=== PATIENT | female | born 1995 | race Caucasian/White ===

== ENCOUNTER 2021-05-19 07:55 | Outpatient (CLI) | payer OTHER | END 2021-05-19 08:27 | disposition home or self-care (01) | LOC: LAB 07:55 | PROVIDERS: ATTEND Preventive Medicine Occupational Medicine | DX: U07.1 COVID-19 (principal) ==

== ENCOUNTER 2021-07-10 14:19 | Emergency (ER) | payer OTHER ==
[~2021-07-10] VITALS: Ht 170.2 cm; Wt 79.4 kg
== END 2021-07-10 20:49 | disposition home or self-care (01) ==
LOC: ER 14:19
DX: S62.509A Fracture of unspecified phalanx of unspecified thumb, initial encounter for closed fracture (principal); Y09 Assault by unspecified means

== ENCOUNTER 2021-07-18 06:32 | Outpatient (CLI) | payer OTHER | END 2021-07-18 06:46 | disposition home or self-care (01) | LOC: LAB 06:32 | PROVIDERS: ATTEND Internal Medicine Endocrinology, Diabetes & Metabolism | DX: E10.65 Type 1 diabetes mellitus with hyperglycemia (principal); E04.0 Nontoxic diffuse goiter; E06.3 Autoimmune thyroiditis; R80.9 Proteinuria, unspecified ==

== ENCOUNTER 2021-07-18 16:02 | Outpatient (CLI) | payer OTHER | END 2021-07-18 16:12 | disposition home or self-care (01) | LOC: RAD 16:02 | PROVIDERS: ATTEND Orthopaedic Surgery | DX: S62.521A Displaced fracture of distal phalanx of right thumb, initial encounter for closed fracture (principal) ==

== ENCOUNTER 2021-07-22 08:29 | Outpatient (CLI) | payer OTHER | END 2021-07-22 13:59 | disposition home or self-care (01) | LOC: LAB 08:29 | PROVIDERS: ATTEND Preventive Medicine Occupational Medicine | DX: U07.1 COVID-19 (principal) ==

== ENCOUNTER → 2021-08-15 | Outpatient (CLI) | payer OTHER | END | disposition home or self-care (01) | LOC: RAD 15:51 | PROVIDERS: ATTEND Orthopaedic Surgery | DX: S62.521A Displaced fracture of distal phalanx of right thumb, initial encounter for closed fracture (principal) ==

== ENCOUNTER 2021-09-09 15:06 | Outpatient (CLI) | payer OTHER | END 2021-09-09 15:13 | disposition home or self-care (01) | LOC: RAD 15:06 | PROVIDERS: ATTEND Orthopaedic Surgery | DX: S62.521A Displaced fracture of distal phalanx of right thumb, initial encounter for closed fracture (principal) ==